=== PATIENT | female | born 1965 | race Caucasian/White ===

== ENCOUNTER → 2016-05-10 | Outpatient (CLI) | payer MEDICARE | LOC: KOH-I 12:27 | DX: R06.02 Shortness of breath (principal) | CPT/HCPCS: 71020 ==

== ENCOUNTER → 2020-05-24 | Outpatient (CLI) | payer BC | LOC: US 05-13 11:30 | DX: M79.606 Pain in leg, unspecified (principal) | CPT/HCPCS: 93970 ==

== ENCOUNTER 2020-06-22 02:36 | Emergency (ER) | payer BC ==
[2020-06-22 03:51] LABS: HEMOGLOBIN 14.1 gm/dl (12.3-15.3); RED BLOOD COUNT 4.79 M/UL (4.00-5.10); WHITE BLOOD COUNT 7.6 K/UL (4.5-11.0)
[2020-06-22 04:23] LABS: BUN/CREATININE RATIO 22 (0-10)
== END 2020-06-22 06:02 | disposition home or self-care (01) ==
LOC: ER1 02:36
PROVIDERS: Family Medicine
DX: R42 Dizziness and giddiness (principal); F17.200 Nicotine dependence, unspecified, uncomplicated; Z88.6 Allergy status to analgesic agent
CPT/HCPCS: 70450; 80053; 81001; 82550; 82553; 83874; 84484; 85025; 93005; 99284

== ENCOUNTER → 2020-09-28 | Outpatient (CLI) | payer BC, OTHER | LOC: RAD 18:21 | DX: M54.5 Low back pain (principal); M25.552 Pain in left hip; M47.816 Spondylosis without myelopathy or radiculopathy, lumbar region; M47.814 Spondylosis without myelopathy or radiculopathy, thoracic region; M16.12 Unilateral primary osteoarthritis, left hip | CPT/HCPCS: 72072; 72100; 73502 ==